=== PATIENT | male | born 1960 | race Hispanic/Latino ===

== ENCOUNTER 2016-11-03 12:55 | Emergency (ER) | payer MEDICARE, MEDICAID ==
[2016-11-03 13:03] VITALS: TEMP 98.7
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
[2016-11-03 13:29] VITALS: BMI 28.3
[2016-11-03 13:56] VITALS: BP 125/80; PULSE 86; RESP 17; O2SAT 98
--- NOTE | 2016-11-03 14:41 | RAD ---
PROCEDURE: Radiographs of the Left Forearm HISTORY: arm pain Follow-up left distal radial and ulnar fractures. COMPARISON: None available. TECHNIQUE: Frontal and lateral views obtained. FINDINGS: BONES: The made to the fracture fragments are anatomically aligned. This includes the distal radial fracture and the slightly more proximal distal ulna fracture. Persistent soft tissue swelling. JOINT SPACES: Unremarkable. OTHER FINDINGS: None. IMPRESSION: Stable anatomic alignment of major fracture fragments distal left radius and ulna. New line Limitations of the current examination: Detail obscured by overlying fiberglass cast.
== END 2016-11-03 13:55 | disposition home or self-care (01) ==
LOC: ED 12:55
DX: S52.502E Unspecified fracture of the lower end of left radius, subsequent encounter for open fracture type I or II with routine healing (principal); S52.612E Displaced fracture of left ulna styloid process, subsequent encounter for open fracture type I or II with routine healing; W08.XXXD Fall from other furniture, subsequent encounter

== ENCOUNTER 2018-04-06 17:48 | Emergency (ER) | payer OTHER, MEDICARE, MEDICAID ==
[2018-04-06 17:49] VITALS: BMI 28.3
[2018-04-06 18:37] VITALS: RESP 18
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
[2018-04-06 19:50] VITALS: TEMP 98.7
[2018-04-06 20:20] LABS: VENOUS BLOOD GAS PO2 76 mm/Hg (30-55)
[2018-04-06 20:28] LABS: ALB/GLOB RATIO 1.3 (1.1-1.8); ALBUMIN 4.2 g/dL (3.0-4.8); ALT/SGPT 26 U/L (7-56); AST/SGOT 39 U/L (17-59); BLOOD UREA NITROGEN 16 mg/dL (7-21); CALCIUM 9.3 mg/dL (8.4-10.5); GFR NON-AFRICAN AMERICAN > 60
[2018-04-06 20:41] LABS: BASO # 0.03 K/mm3 (0.0-2.0); BASO % 0.7 % (0.0-3.0); EOS # 0.2 (0.0-0.7); EOS % 3.9 % (1.5-5.0); GRAN # 2.23 (1.4-6.5); GRAN % 51.4 % (50.0-68.0); LYMPH # 1.6 (1.2-3.4); LYMPH % 36.9 % (22.0-35.0); MEAN CELL VOLUME 87.2 fl (80.0-105.0); MEAN CORPUSCULAR HEMOGLOBIN 30.9 pg (25.0-35.0); MEAN CORPUSCULAR HGB CONC 35.4 g/dl (31.0-37.0); MEAN PLATELET VOLUME 10.7 fl (7.0-11.0); MONO # 0.3 (0.1-0.6); MONO % 7.1 % (1.0-6.0); RBC 4.21 10^6/uL (3.5-6.1); RED CELL DISTRIBUTION WIDTH 13.4 % (11.5-14.5); WHITE BLOOD COUNT 4.3 10^3/ul (4.5-11.0)
[2018-04-06 20:45] LABS: INR 1.17; PARTIAL THROMBOPLASTIN TIME 32.9 Seconds (25.1-36.5); PROTHROMBIN TIME 13.4 SECONDS (9.4-12.5)
[2018-04-06] MEDS ORDERED: Iohexol 350 MG/100 ML VIAL ONE (21:01)
[2018-04-07 00:40] VITALS: BP 127/82; PULSE 84; O2SAT 97
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
== END 2018-04-06 22:40 | disposition left against medical advice (07) ==
LOC: ED 17:48
DX: Z04.1 Encounter for examination and observation following transport accident (principal); V03.90XA Pedestrian on foot injured in collision with car, pick-up truck or van, unspecified whether traffic or nontraffic accident, initial encounter
CPT/HCPCS: 70450; 71045; 72125; 73502; 74177; 80053; 82550; 82803; 85025; 85610; 85730; 86850; 86900; 99284; Q9967